=== PATIENT | male | born 1970 | race Caucasian/White ===

== ENCOUNTER 2018-08-10 23:51 | Emergency (ER) | payer SELFPAY ==
[~2018-08-10] VITALS: Ht 177.8 cm; Wt 90.3 kg
[2018-08-11 00:25] VITALS: Ht 177.8 cm; Wt 90.3 kg
[2018-08-11 02:00] VITALS: BP 139/64
== END 2018-08-11 02:00 | disposition home or self-care (01) ==
LOC: ED 23:51
DX: R53.1 Weakness (principal); F32.9 Major depressive disorder, single episode, unspecified